=== PATIENT | female | born 1935 | race Caucasian/White ===

== ENCOUNTER 2021-10-19 12:13 | Emergency (ER) | payer MEDICARE ==
[~2021-10-19] VITALS: Ht 157.5 cm; Wt 63.6 kg
[~2021-10-19 12:13] MED LIST: ONDA4TAB12 PO
[2021-10-19 13:15] LABS: BASOPHILS % (AUTO) 0.3 % (0-1); EOSINOPHILS % (AUTO) 0.5 % (0-6); HEMATOCRIT 43.4 % (35.0-45.0); HEMOGLOBIN 14.7 g/dl (12.0-16.0); LYMPHOCYTES # (AUTO) 0.7 X10'3 (1.1-4.8); MEAN CORPUSCULAR HEMOGLOBIN 30.9 PG (27.0-31.0); MEAN PLATELET VOLUME 9.1 FL (7.4-10.4); MONOCYTES # (AUTO) 0.5 X10'3 (0-0.9); MONOCYTES % (AUTO) 6.7 % (2-12); NEUTROPHILS # (AUTO) 5.7 X10'3 (1.8-7.7); NEUTROPHILS % (AUTO) 82.5 % (42-75); PLATELET COUNT 231 X10'3 (140-440); RED BLOOD COUNT 4.76 X10'6 (4.20-5.60); RED CELL DISTRIBUTION WIDTH 12.5 % (11.5-14.5); WHITE BLOOD COUNT 6.9 X10'3 (4.5-11.0)
[2021-10-19 13:33] LABS: ALANINE AMINOTRANSFERASE 24 U/L (12-78); ALBUMIN/GLOBULIN RATIO 1.3 (1.1-1.5); ALKALINE PHOSPHATASE 105 IU/L (46-116); ANION GAP 11 (8-16); ASPARTATE AMINO TRANSFERASE 14 U/L (10-37); BILIRUBIN,TOTAL 0.5 MG/DL (0.1-1.0); BLOOD UREA NITROGEN 19 MG/DL (7-18); CALCIUM 9.7 MG/DL (8.5-10.1); CHLORIDE 104 MMOL/L (99-107); GLUCOSE 108 MG/DL (70-104); POTASSIUM 3.9 MMOL/L (3.5-5.1); SODIUM 141 MMOL/L (135-145); eGFR 53 ML/MIN
[2021-10-19] MEDS ORDERED: normal saline 1000ML IV soln IVB ONE (15:25)
[2021-10-19] MEDS: gabapentin 100mg capsule PO STA ×2 (16:30→19:23)
[2021-10-19 19:24] VITALS: BP 190/80
== END 2021-10-19 19:25 | disposition home or self-care (01) ==
LOC: ER 12:14
DX: R42 Dizziness and giddiness (principal); F41.9 Anxiety disorder, unspecified; I10 Essential (primary) hypertension; R11.0 Nausea; Z90.710 Acquired absence of both cervix and uterus; Z98.890 Other specified postprocedural states; Z88.8 Allergy status to other drugs, medicaments and biological substances; Z79.899 Other long term (current) drug therapy
CPT/HCPCS: 36415; 71045; 80053; 84484; 85025; 93005; 96360; 96361; 99285; J7030

== ENCOUNTER 2025-05-27 15:20 | Outpatient (CLI) | payer MEDICARE ==
[~2025-05-27 15:20] MED LIST changes: +ONDA-243 PO; -ONDA4TAB12 PO
--- NOTE | 2025-05-31 03:00 | CONSULTATION ---
DATE OF CONSULTATION: 05/27/2025 DICTATING PHYSICIAN: Ana Monge M.S., [facility]-RELIEF OPERATOR MODIFIED BARIUM SWALLOW STUDY REPORT REFERRING PHYSICIAN: Robson Hernandez MD HISTORY OF PRESENT ILLNESS: The patient is an 89-year-old female and consents to this evaluation. History obtained from the patient and medical records. The patient reports symptoms of dysphagia including difficulty with a cough that can be triggered by cold items such as liquids or just on her saliva. She reports that it can occur when she wakes up in the morning on phlegm or when she is talking too long as well. The patient has been referred to a neurologist, but she has not yet been contacted to schedule an appointment with the neurologist. She has also been having trouble with her colon and constipation. The patient reports that bread that is not toasted is more difficult for her to swallow. CURRENT DIET: In terms of caffeine, the patient has 2 nyasia lattes a day. She does not utilize tobacco products or drink alcohol. She consumes chocolate in the form of a piece of chocolate or in a protein drink a few times a week. In terms of dairy products, the patient has milk in her latte twice daily, cheese, yogurt, milk in her cereal, and cottage cheese. A typical breakfast may be 24-hour oatmeal with yogurt and fruit or it may be cereal with milk and fruit or it may be scrambled eggs. She also has her nyasia latte in the morning. She then snacks in the morning on crackers and fruit. A typical lunch may be cheese, tuna, cottage cheese and fruit, or she may go out to eat. She snacks in the afternoon on crackers and cookies and she will have her nyasia latte right before 2:00 p.m. Her dinner is between 5:00 and 5:30 p.m. and may be tuna salad, scrambled eggs, soup, salmon, or cottage cheese and fruit, and she goes to bed between 10:00 and 10:30 p.m. MEDICATIONS: Amlodipine 5 mg one tablet once daily orally, simvastatin 10 mg one tablet once daily orally, metoprolol tartrate 25 mg one tablet once daily orally, omeprazole 40 mg delayed release one capsule once daily orally, ketoconazole 2% topical foam, buspirone 5 mg half a tablet twice daily orally, Senna lax 8.6 mg two tablets once daily orally, vitamin D3 1000 IU once daily orally, multivitamin once daily orally, MiraLax once daily orally, magnesium glycinate 260 mg once daily orally. PARAMETERS: The patient is seated in a lateral 90-degree view and administered the usual protocol of thin and nectar thick liquids, puree and solid consistencies, as well as self-regulated boluses of thin liquids from the cup. RESULTS: The patient was easily able to transfer the bolus from the anterior to the posterior oral cavity. There did not appear to be any difficulty with strength or range of motion of the tongue. In the pharyngeal stage of the swallow, swallow initiation was within functional limits. Tongue base retraction was within functional limits. Anterior movement at the posterior pharyngeal wall was observed. Elevation of the hyothyroid complex was accomplished with full range of motion. There was no pharyngeal residue noted after the tail of the bowl was passed and PES opening was within functional limits. In terms of airway safety, the patient did not demonstrate with any penetration or aspiration. ANTERIOR, POSTERIOR VIEW: In the AP plane, the bolus split symmetrically between the piriform sinuses and there was no proximal movement noted. 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 Nothing was observed in regard to the anatomy and physiology of the swallowing mechanism, but based off of the patient's report, there may be a difficulty with coordinating breathing and swallowing at this time. The patient did note that she has been seen for a flexible fiberoptic laryngoscopy by her ENT in the past. This clinician does not have that report at this time, but plans to obtain that report to see if there can be further information regarding the patient's swallowing symptoms and what could be causing it. DIAGNOSES: R13.12 dysphagia oropharyngeal phase, R05.9 cough. PATIENT EDUCATION: Immediately following modified barium swallow study, the patient was able to view the results. The normal anatomy and physiology of the swallowing mechanism was revealed. She was instructed in diaphragmatic breathing and pursed-lip breathing as well regarding these episodes that she has when she is having cold liquids or when she has been talking too much. RECOMMENDATIONS: * It is recommended that the patient begin to practice diaphragmatic breathing and pursed-lip breathing independently at home. * Following obtaining results of the FFL and if the patient is having trouble with independently practicing that diaphragmatic breathing, the patient may return to this clinician [place] [address] one time weekly for 12 weeks. LONG-TERM GOALS: The patient will maintain adequate hydration/nutrition with optimum safety and efficiency of swallow function on p.o. intake without overt signs and symptoms of aspiration for the highest possible diet level. FUNCTIONAL ORAL INTAKE: The FOIS was administered to establish and document a change in the functional eating activities of this patient over time. This is a 7-point scale with 1 indicating no oral intake and totally tube dependent and 7 indicating total oral intake with no restrictions. This patient received a 7 which indicates total oral intake with no restrictions. G-CODE: [id number]. Thank you very much for asking me to participate in the care of this kind patient. Should you have any questions regarding this evaluation or recommendations, please do not hesitate to contact me at [phone]. During this examination, 2.50 minutes of fluoroscopy time and 19.66 CAK mGy were utilized. Ana Monge M.S., [facility]IEF OPERATOR TID: [id number] RECEIPT: [id number] ROBBY/CHERYL/DEMARIO ALICIA
== END 2025-05-27 23:59 | disposition home or self-care (01) ==
LOC: RAD 15:20
PROVIDERS: ATTEND Otolaryngology
DX: R13.12 Dysphagia, oropharyngeal phase (principal); R05.9 Cough, unspecified
CPT/HCPCS: 74230